=== PATIENT | male | born 2000 ===

== ENCOUNTER 2021-09-29 00:39 | Emergency (ER) | payer BC ==
--- OUTSIDE RECORDS SUMMARY | 2021-09-29 00:42 | XMS REPORT | Continuity of Care Document ---
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 pat ient sclinical prese ntation (history, physi shin exam) and ECGshould b e used in conjunction wit h troponin in thediagnosti c evaluation of s uspected myocardial infa rction. Aserial samplin g protocol is recommended to facilitate the identification of temporal changes in trop onin levels characteristic of GA. BASIC METABOLIC [id number] 00:06:00 Test Item Value Reference Range Interpretation Comments SODIUM (test code = NA/ABG) 135 MEQ/L 134-147 N POTASSIUM (test code = K/ABG) 3.9 MEQ/L 3.4-5.0 N CHLORIDE (test code = CL/ABG) 101 MEQ/L 100-108 N CREATININE ABG (test code = 1.2 mg/dL 0.8-1.3 N CREAABG) POC IONIZED CALCIUM (test code = 1.09 MMOL/L 1.12-1.32 L POCCA) POC GLUCOSE (test code = POCGLU) 111 MG/DL POC LACTIC [id number] 00:06:00 Test Item Value Reference Range Interpretation Comments POC LACTIC ACID (test code = 1.4 mmol/l 0.9-1.7 N POCLAC) POC VENOUS BLOOD [id number] 00:06:00 Test Item Value Reference Range Interpretation Comments POC VENOUS BLOOD GAS PH (test 7.429 7.33-7.45 N code = POCPHV) POC VENOUS BLOOD GAS PCO2 (test 34.5 mmHg 43-47 L code = [id number]) POC VENOUS BLOOD GAS PO2 (test 59.5 mmHG 10-50 H code = SDTFJ3Q) POC TCO2 VENOUS (test code = 23.9 RAHKOB2J) POC HCO3 VENOUS (test code = 22.9 MMOL/L 22-27 N [id number]) POC BASE EXCESS VENOUS (test code -1.5 MMOL/L -4.0-4.0 N = POCBEV) POC O2 SATURATION VENOUS (test 91.3 % 60-80 H code = MDHG6CO) CBC W/AUTO [id number] 00:04:00 Test Item Value Reference Range Interpretation Comments WHITE BLOOD CELL (test code = WBC) 8.3 K/uL 3.5-11.0 N RED BLOOD CELL (test code = RBC) 4.76 M/uL 4.00-5.60 N HEMOGLOBIN (test code = HGB) 14.7 GM/DL 12.5-16.9 N HEMATOCRIT (test code = HCT) 42.4 % 40.0-54.0 N MEAN CELL VOLUME (test code = MCV) 89.1 fL 81.0-99.0 N MEAN CELL HGB (test code = MCH) 30.9 pg 27.0-31.0 N MEAN CELL HGB CONCETRATION (test 34.7 GM/DL 33.0-37.0 N code = MCHC) RED CELL DISTRIBUTION WIDTH CV 13.9 % 11.5-14.5 N (test code = RDW) PLATELET COUNT (test code = PLT) 201 K/mm3 150-400 N MEAN PLATELET VOLUME (test code = 9.8 FL 8.8-13.1 N MPV) NEUTROPHIL % (test code = NT%) 92.6 % 34.0-64.0 H LYMPHOCYTE % (test code = LY%) 4.7 % 25.0-45.0 L MIXED % (test code = MX%) 2.7 % 3.0-15.0 L NEUTROPHIL # (test code = NT#) 7.7 K/uL 1.8-7.6 H LYMPHOCYTE # (test code = LY#) 0.4 K/uL 1.0-3.8 L MIXED # (test code = MX#) 0.2 k/mm3 0.1-0.8 N - XR CHEST 1 [id number] 00:00:00 [facility] 2000 Sex: M FAX: Jonathan Larsen MD [place]: [place] St: REG Name: HELENE CORREIA FSED : 2000 Age/S: 21/M [address] [facility] Unit #: [id number] Loc: [place] [address] Phys: Jonathan Larsen MD Acct: [id number] Dis Date: Status: REG ER PHONE #: Exam Date: 06/07/2021 0257 FAX #: Reason: sepsis EXAMS: CPT CODE: [id number] XR CHEST 1 V 53894 PROCEDURE INFORMATION: Exam: XR Chest Exam date and time: 06/07/2021 10:56 PM Age: 21 years old Clinical indication: Fever; Sepsis TECHNIQUE: Imaging protocol: XR of the chest. Views: 1 view. COMPARISON: No relevant prior studies available. FINDINGS: Lungs: No focal consolidation. Pleural spaces: No pleural effusion. No pneumothorax. Heart/Mediastinum: Cardiac and mediastinal contours within normal limits. Bones/joints: No acute osseous abnormality. IMPRESSION: No radiographic evidence of acute cardiopulmonary disease. at 2312 Reported andsigned by: Dean Lorenzo M.D. CC: Jonathan Larsen MD Technologist: RT Razia(R)(CT) Trnscrd Date/Time/By: 06/07/2021 ([id number]) : By: [email or web address] Orig Print D/T: S: 06/07/2021 ([id number]) PAGE 1 Signed Report
[2021-09-29] MEDS ORDERED: NA CHLORIDE 0.9% 1,000 ML ONE (01:50)
[2021-09-29] MEDS ORDERED: MORPHINE 2 MG/ML SYR ONE (01:50)
[2021-09-29] MEDS ORDERED: ONDANSETRON 4 MG/2 ML VIAL ONE (01:50)
[2021-09-29 02:19] LABS: Absolute Lymphocytes (CBC) 1.4 K/uL (0.7-4.9); Hematocrit 47.9 % (39.6-49.0); Lymphocytes % 18.1 % (15.3-44.8); MPV 6.9 fL (7.6-11.3)
[2021-09-29 02:56] LABS: Urine Blood Negative (Negative); Urine Glucose Negative (Negative); Urine Protein Negative (Negative); Urine Specific Gravity <=1.005 (1.005-1.030)
[2021-09-29 03:45] LABS: ALT/SGPT 103 U/L (12-78); AST/SGOT 79 U/L (15-37); Albumin 3.6 g/dL (3.4-5.0); Alkaline Phosphatase 116 U/L (45-117); BUN Blood Urea Nitrogen 9 mg/dL (7-18); Bicarbonate 29 mmol/L (21-32); Bilirubin Total 0.2 mg/dL (0.2-1.0); Glucose Level 108 mg/dL (74-106); Lipase 85 U/L (73-393); Potassium 4.1 mmol/L (3.5-5.1); Protein, Total 7.4 g/dL (6.4-8.2)
--- NOTE | 2021-09-29 03:51 | ER ---
Nurse's Notes [facility] Name: Bryce Baez Age: 21 yrs Sex: Male : 2000 Arrival Date: 09/29/2021 Time: 00:40 Bed 15 Private MD: Diagnosis: Abdominal pain, Generalized;Vomiting;Diarrhea, unspecified Presentation: 09/29 01:25 Chief complaint: Patient states: "I haven't been feeling well since yesterday.". tw5 Coronavirus screen: Vaccine status: Patient reports being unvaccinated. Ebola Screen: Patient negative for fever greater than or equal to 101.5 degrees Fahrenheit, and additional compatible Ebola Virus Disease symptoms Patient denies exposure to infectious person. Patient denies travel to an Ebola-affected area in the 21 days before illness onset. Initial Sepsis Screen: Does the patient meet any 2 criteria? No. Patient's initial sepsis screen is negative. Does the patient have a suspected source of infection? No. Patient's initial sepsis screen is negative. Risk Assessment: Do you want to hurt yourself or someone else? Patient reports no desire to harm self or others. Onset of symptoms was September 27, 2021. 01:25 Method Of Arrival: Wheelchair tw5 01:25 Acuity: ISRRA[place] 3 tw5 Triage Assessment: 01:26 General: Appears unkempt, patient presented to ER without a shirt, and curled up in the tw5 wheelchair.. Behavior is calm, cooperative, appropriate for age, drowsy. Pain: Complains of pain in abdomen Pain currently is 4 out of 10 on a pain scale. GI: Reports diarrhea, nausea, vomiting. Historical: - Allergies: 01:26 No Known Allergies; tw5 - Immunization history:: Flu vaccine is up to date. - Social history:: Smoking status: Patient reports the use of cigarette tobacco products, smokes one-half pack cigarettes per day. - Family history:: not pertinent. Screenin:40 Abuse screen: Denies threats or abuse. Nutritional screening: No deficits noted. ll3 Tuberculosis screening: No symptoms or risk factors identified. Fall Risk No fall in past 12 months (0 pts). No secondary diagnosis (0 pts). IV access (20 points). Ambulatory Aid- None/Bed Rest/Nurse Assist (0 pts). Gait- Normal/Bed Rest/Wheelchair (0 pts) Mental Status- Oriented to own ability (0 pts). Total [place] Fall Scale indicates No Risk (0-24 pts). Assessment: 01:40 General: Appears uncomfortable, Behavior is calm, cooperative. Pain: Complains of pain ll3 in abdomen Pain currently is 9 out of 10 on a pain scale. Pain began 1999 Is continuous. Neuro: Level of Consciousness is awake, alert, obeys commands, Oriented to person, place, time, situation. Respiratory: Respiratory effort is even, unlabored, Respiratory pattern is regular, symmetrical. GI: Bowel sounds present X 4 quads. Abd is soft X 4 quads Abd is non tender in right upper quadrant and left upper quadrant Abdomen is tender to palpation in right lower quadrant and left lower quadrant Reports nausea, vomiting. Derm: Skin is pink, warm \\T\\ dry. 03:04 Reassessment: Patient and/or family updated on plan of care and expected duration. Pain ll3 level reassessed. Patient is alert, oriented x 3, equal unlabored respirations, skin warm/dry/pink. Denies pain at this time Patient states feeling better. Patient states symptoms have improved. 05:00 Reassessment: Patient and/or family updated on plan of care and expected duration. Pain ll3 level reassessed. Patient is alert, oriented x 3, equal unlabored respirations, skin warm/dry/pink. Patient states feeling better. Vital Signs: 01:25 BP 126 / 92; Pulse 67; Resp 18; Temp 99; Pulse Ox 99% ; Weight 57 kg; Height 5 ft. 6 tw5 in. (167.64 cm); Pain 4/10; 02:30 BP 131 / 86; Pulse 82; Resp 16; Pulse Ox 100% on R/A; ll3 03:30 BP 121 / 77; Pulse 78; Resp 15; Pulse Ox 100% ; tw5 04:47 BP 123 / 86; Pulse 80; Resp 17; Pulse Ox 100% on R/A; tw5 01:25 Body Mass Index 20.28 (57.00 kg, 167.64 cm) tw5 ED Course: 00:40 Patient arrived in ED. ja2 01:25 August Schwartz MD is Attending Physician. marta 01:26 Triage completed. 01:26 Arm band placed on Patient placed in an exam room, on a stretcher, on pulse oximetry. tw5 01:33 Inserted saline lock: 20 gauge in right antecubital area, using aseptic technique. oe Blood collected. 01:40 Patient has correct armband on for positive identification. Bed in low position. Call ll3 light in reach. Side rails up X 1. Adult w/ patient. 01:55 Yolis Catherine, RN is Primary Nurse. ll3 02:55 CT Abd/Pelvis - IV Contrast Only In Process Unspecified. EDMS 05:00 No provider procedures requiring assistance completed. IV discontinued, intact, ll3 bleeding controlled, No redness/swelling at site. Pressure dressing applied. Administered Medications: 01:54 Drug: NS 0.9% 1000 ml Route: IV; Rate: 1 bolus; Site: right forearm; ll3 01:55 Drug: Zofran (Ondansetron) 4 mg Route: IVP; Site: right forearm; ll3 03:03 Follow up: Response: No adverse reaction ll3 01:55 Drug: morphine 2 mg Route: IVP; Site: right forearm; ll3 03:03 Follow up: Response: No adverse reaction; Marked relief of symptoms ll3 Outcome: 03:50 Discharge ordered by . marta 05:00 Discharged to home ambulatory. ll3 05:00 Condition: stable 05:00 Discharge instructions given to patient, family, Instructed on discharge instructions, follow up and referral plans. medication usage, Demonstrated understanding of instructions, follow-up care, medications, Prescriptions given X 4. 05:01 Patient left the ED. ll3 Signatures: Dispatcher [employer] EDNE August Schwartz MD MD cha Espinosa, Orlando oe Alexander, Jessica ja2 Wood, Tiffany tw5 Yolis Catherine, GENEVIEVE RN ll3 Corrections: (The following items were deleted from the chart) 02:39 02:37 General: Appears uncomfortable, Behavior is calm, cooperative, ll3 ll3 02:39 02:37 Pain: Complains of pain in abdomen Pain currently is 9 out of 10 on a pain scale. ll3 Pain began 1999 Is continuous, ll3 02:39 02:37 Neuro: Level of Consciousness is awake, alert, obeys commands, Oriented to ll3 person, place, time, situation, ll3 02:39 02:37 Respiratory: Respiratory effort is even, unlabored, Respiratory pattern is ll3 regular, symmetrical, ll3 02:39 02:37 GI: Bowel sounds present X 4 quads. Abd is soft X 4 quads Abd is non tender in ll3 right upper quadrant and left upper quadrant Abdomen is tender to palpation in right lower quadrant and left lower quadrant Reports nausea, vomiting, ll3 02:39 02:37 Derm: Skin is pink, warm \\T\\ dry. ll3 ll3
--- NOTE | 2021-09-29 03:51 | EDPHYS ---
Physician Documentation [facility] Name: Bryce Baez Age: 21 yrs Sex: Male : 2000 Arrival Date: 09/29/2021 Time: 00:40 Bed 15 Private MD: HENRY Physician August Schwartz HPI: 09/29 02:19 This 21 yrs old Male presents to ER via Wheelchair with complaints of marta Abdominal Pain, Nausea/Vomiting. 02:19 The patient presents to the emergency department with nausea, vomiting, that is marta continuous. Onset: The symptoms/episode began/occurred 2 day(s) ago. Possible causes: unknown. The symptoms are aggravated by nothing. The symptoms are alleviated by nothing. Associated signs and symptoms: The patient has no apparent associated signs or symptoms. Severity of symptoms: At their worst the symptoms were mild in the emergency department the symptoms are unchanged. The patient has not experienced similar symptoms in the past. Historical: - Allergies: : No Known Allergies; tw5 - Immunization history:: Flu vaccine is up to date. - Social history:: Smoking status: Patient reports the use of cigarette tobacco products, smokes one-half pack cigarettes per day. - Family history:: not pertinent. ROS: 02:19 Constitutional: Negative for fever, chills, and weight loss, Eyes: Negative for injury, marta pain, redness, and discharge, ENT: Negative for injury, pain, and discharge, Neck: Negative for injury, pain, and swelling, Cardiovascular: Negative for chest pain, palpitations, and edema, Respiratory: Negative for shortness of breath, cough, wheezing, and pleuritic chest pain, Back: Negative for injury and pain, : Negative for injury, bleeding, discharge, and swelling, MS/Extremity: Negative for injury and deformity, Skin: Negative for injury, rash, and discoloration, Neuro: Negative for headache, weakness, numbness, tingling, and seizure, Psych: Negative for depression, anxiety, suicide ideation, homicidal ideation, and hallucinations, Allergy/Immunology: Negative for hives, rash, and allergies, Endocrine: Negative for neck swelling, polydipsia, polyuria, polyphagia, and marked weight changes, Hematologic/Lymphatic: Negative for swollen nodes, abnormal bleeding, and unusual bruising. 02:19 Abdomen/GI: Positive for abdominal pain, nausea and vomiting, diarrhea. Exam: 02:19 Constitutional: This is a well developed, well nourished patient who is awake, alert, marta and in no acute distress. Head/Face: Normocephalic, atraumatic. Eyes: Pupils equal round and reactive to light, extra-ocular motions intact. Lids and lashes normal. Conjunctiva and sclera are non-icteric and not injected. Cornea within normal limits. Periorbital areas with no swelling, redness, or edema. ENT: Nares patent. No nasal discharge, no septal abnormalities noted. Tympanic membranes are normal and external auditory canals are clear. Oropharynx with no redness, swelling, or masses, exudates, or evidence of obstruction, uvula midline. Mucous membranes moist. Neck: Trachea midline, no thyromegaly or masses palpated, and no cervical lymphadenopathy. Supple, full range of motion without nuchal rigidity, or vertebral point tenderness. No Meningismus. Chest/axilla: Normal chest wall appearance and motion. Nontender with no deformity. No lesions are appreciated. Cardiovascular: Regular rate and rhythm with a normal S1 and S2. No gallops, murmurs, or rubs. Normal PMI, no JVD. No pulse deficits. Respiratory: Lungs have equal breath sounds bilaterally, clear to auscultation and percussion. No rales, rhonchi or wheezes noted. No increased work of breathing, no retractions or nasal flaring. Abdomen/GI: Soft, non-tender, with normal bowel sounds. No distension or tympany. No guarding or rebound. No evidence of tenderness throughout. Back: No spinal tenderness. No costovertebral tenderness. Full range of motion. Male : Normal genitalia with no discharge or lesions. Skin: Warm, dry with normal turgor. Normal color with no rashes, no lesions, and no evidence of cellulitis. MS/ Extremity: Pulses equal, no cyanosis. Neurovascular intact. Full, normal range of motion. Neuro: Awake and alert, GCS 15, oriented to person, place, time, and situation. Cranial nerves II-XII grossly intact. Motor strength 5/5 in all extremities. Sensory grossly intact. Cerebellar exam normal. Normal gait. Psych: Awake, alert, with orientation to person, place and time. Behavior, mood, and affect are within normal limits. Vital Signs: 01:25 BP 126 / 92; Pulse 67; Resp 18; Temp 99; Pulse Ox 99% ; Weight 57 kg; Height 5 ft. 6 tw5 in. (167.64 cm); Pain 4/10; 02:30 BP 131 / 86; Pulse 82; Resp 16; Pulse Ox 100% on R/A; ll3 03:30 BP 121 / 77; Pulse 78; Resp 15; Pulse Ox 100% ; tw5 04:47 BP 123 / 86; Pulse 80; Resp 17; Pulse Ox 100% on R/A; tw5 01:25 Body Mass Index 20.28 (57.00 kg, 167.64 cm) tw5 MDM: 01:25 Patient medically screened. [facility] 02:20 Differential diagnosis: Nonspecific abd pain. Data reviewed: vital signs, nurses notes, [facility] lab test result(s), radiologic studies, CT scan. Data interpreted: case monitor: not applicable for this patient encounter. rate is 67 beats/min, Pulse oximetry: on room air is 99 %. 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 09/29 01:26 Order name: CBC with Diff; Complete Time: 03:10 [facility] 09/29 01:26 Order name: CMP [facility] 09/29 01:26 Order name: Lipase [facility] 09/29 01:26 Order name: CT Abd/Pelvis - IV Contrast Only [facility] 09/29 02:56 Order name: Urine Dipstick-Ancillary; Complete Time: 03:10 [facility] 09/29 01:26 Order name: IV Saline Lock; Complete Time: 01:38 [facility] 09/29 01:26 Order name: Labs collected and sent; Complete Time: 01:38 [facility] 09/29 01:26 Order name: Urine Dipstick-Ancillary (obtain specimen); Complete Time: 03:03 [facility] Administered Medications: 01:54 Drug: NS 0.9% 1000 ml Route: IV; Rate: 1 bolus; Site: right forearm; ll3 01:55 Drug: Zofran (Ondansetron) 4 mg Route: IVP; Site: right forearm; ll3 03:03 Follow up: Response: No adverse reaction ll3 01:55 Drug: morphine 2 mg Route: IVP; Site: right forearm; ll3 03:03 Follow up: Response: No adverse reaction; Marked relief of symptoms ll3 Disposition Summary: 09/29/21 03:50 Discharge Ordered Location: Home [facility] Problem: new marta Symptoms: have improved marta Condition: Stable marta Diagnosis - Abdominal pain, Generalized marta - Vomiting marta - Diarrhea, unspecified marta Followup: [facility] - With: Private Physician - When: 2 - 3 days - Reason: Recheck today's complaints, Continuance of care, Re-evaluation by your physician Discharge Instructions: - Discharge Summary Sheet marta - Abdominal Pain, Adult marta - Food Choices to Help Relieve Diarrhea, Adult marta - Diarrhea, Adult marta - Abdominal Pain, Adult, [id number] marta - Diarrhea, Adult, [id number] [facility] Forms: - Medication Reconciliation Form [facility] - Thank You Letter [facility] - Antibiotic Education [facility] - Prescription Opioid Use [facility] Prescriptions: - Pepcid 20 mg Oral Tablet - take 1 tablet by ORAL route every 12 hours for 10 days; 20 tablet; Refills: 0, [facility] Product Selection Permitted - Zofran 4 mg Oral Tablet - take 1 tablet by ORAL route every 12 hours As needed; 20 tablet; Refills: 0, [facility] Product Selection Permitted - dicyclomine 20 mg Oral Tablet - take 1 tablet by ORAL route 4 times per day; 28 tablet; Refills: 0, Product [facility] Selection Permitted - Cipro 500 mg Oral Tablet - take 1 tablet by ORAL route every 12 hours for 5 days; 10 tablet; Refills: 0, [facility] Product Selection Permitted Signatures: Dispatcher [employer] August Mukherjee MD MD cha Wood, Tiffany tw5 Yolis Catherine RN RN ll3
[2021-09-29 03:59] LABS: Sodium Level 138 mmol/L (136-145)
--- NOTE | 2021-09-29 10:33 | RAD REPORT ---
EXAM DESCRIPTION: CT - Abdomen Pelvis W Contrast - 09/29/2021 6:41 am CLINICAL HISTORY: ABD PAIN TECHNIQUE: Axial computed tomography images of the abdomen and pelvis with intravenous contrast. S agittal and coronal reformatted images were created and reviewed. This CT exam was performed using one or more of the following dose reduction techniques: automated exposure control, adjustment of t he mA and/or kV according to patient size, and/or use of iterative reconstruction technique. COMPARISON: No relevant prior studies available. FINDINGS: Lung bases: Unremarkable. No mass. No consolidation. ABDOMEN: Liver: Unremarkable. No mass. Gallbladder and bile ducts: Unremarkable. No calcified stones. No ductal dilation. Pancreas: Unremarkable. No mass. No ductal dilation. Spleen: Unremarkable. No splenomegaly. Adrenals: Unremarkable. No mass. Kidneys and ureters: Subcentimeter cortical hypodensity at the lower pole of the right kidney which is too small to characterize. No follow-up imaging is necessary. No calculi. No hydronephrosis. Stomach and bowel: Multiple nondilated fluid-filled small bowel loops. Moderate stool within a mild ly distended large bowel. No discrete transition. No mucosal thickening. PELVIS: Appendix: Normal caliber appendix. No findings to suggest acute appendicitis. Bladder: Unremarkable. No mass. Reproductive: Unremarkable as visualized. ABDOMEN and PELVIS: Intraperitoneal space: Unremarkable. No free air. No significant fluid collection. Bones/joints: No acute fracture. No dislocation. Soft tissues: Unremarkable. Vasculature: Unremarkable. No abdominal aortic aneurysm. Lymph nodes: Unremarkable. No enlarged lymph nodes. IMPRESSION: 1. Multiple nondilated fluid-filled small bowel loops which can be seen in the setting of nonspecific enteritis. 2. Moderate stool. No bowel obstruction. 3. Other findings as above. Electronically signed by: Janeen Copeland MD 09/29/2021 3:18 AM CDT Due to temporary technical issues with the PACS/Fluency reporting system, reports are being signed by the in house radiologists without review as a courtesy to insure prompt reporting. The interpreting radiologist is fully responsible for the content of the report.
[2021-09-29 13:34] VITALS: TEMP 99
[2021-09-29 13:35] VITALS: O2SAT 100
[2021-09-29 13:38] VITALS: BP 123/86
== END 2021-09-29 05:01 | disposition home or self-care (01) ==
LOC: ER 00:39
DX: R11.10 Vomiting, unspecified (principal); R19.7 Diarrhea, unspecified; F17.210 Nicotine dependence, cigarettes, uncomplicated
CPT/HCPCS: 85025; 36415; 81003; 83690; 80053; 74177; 96375; 96374; 99284; Q9967; J2270; J7030; J2405